=== PATIENT | female | born 1960 | race American Indian/Alaskan Native ===

== ENCOUNTER 2017-05-23 18:41 | Emergency (ER) | payer OTHER ==
[2017-05-23 19:26] VITALS: O2SAT 98
--- NOTE | 2017-05-23 19:28 | C.PDOC ---
History Of Present Illness 57 y/o female brought to ED by police for medical clearance for incarceration. Patient has history of Heroin abuse since 2012 and is currently under arrest. Referred by retirement medical personell for eval/concern for chronic wounds on legs. No other complaints at this time. Chief Complaint (Nursing): Medical Clearance History Per: Patient History/Exam Limitations: no limitations Onset/Duration Of Symptoms: Days Current Symptoms Are (Timing): Still Present Past Medical History Reviewed: Historical Data, Nursing Documentation, Vital Signs Vital Signs: Last Vital Signs Temp 97.3 F L 05/23/17 19:41 Pulse 84 05/23/17 19:41 Resp 22 05/23/17 19:41 BP 129/89 05/23/17 19:41 Pulse Ox 98 05/23/17 21:26 - Medical History PMH: Asthma, Atrial Fibrillation, CHF, HTN Family History: States: No Known Family Hx - Social History Hx Tobacco Use: Yes Hx Alcohol Use: Yes Hx Substance Use: Yes - Immunization History Hx Tetanus Toxoid Vaccination: No Hx Influenza Vaccination: No Hx Pneumococcal Vaccination: No Review Of Systems Except As Marked, All Systems Reviewed And Found Negative. Constitutional: Negative for: Fever, Chills Cardiovascular: Negative for: Chest Pain Respiratory: Negative for: Shortness of Breath Gastrointestinal: Negative for: Nausea, Vomiting, Diarrhea Musculoskeletal: Positive for: Leg Pain Skin: Negative for: Rash Physical Exam - Physical Exam Appears: Other (Older than age) Skin: Normal Color, Warm, Dry, No Rash Head: Atraumatic Eye(s): bilateral: Normal Inspection Oral Mucosa: Moist Teeth: Other (Poor dentician) Chest: Symmetrical Cardiovascular: Rhythm Regular Respiratory: Normal Breath Sounds, No Rales, No Rhonchi, No Wheezing Gastrointestinal/Abdominal: Soft, No Tenderness, No Guarding, No Rebound, Other (Obese abdomen) Extremity: Normal ROM, Pedal Edema (Moderate), No Deformity, Other (Healing wounds 2 on each leg, No infection noted) Neurological/Psych: Oriented x3, Normal Speech, Normal Motor, Normal Sensation ED Course And Treatment O2 Sat by Pulse Oximetry: 98 (RA) Pulse Ox Interpretation: Normal Medical Decision Making Medical Decision Making: under arrest, medically cleared for incarceration mild leg edema and closed and healing wounds are not infected and may be f/u by retirement medical personnel Disposition Doctor Will See Patient In The: Office Counseled Patient/Family Regarding: Studies Performed, Diagnosis - Disposition Referrals: [facility] at [facility] [Outside] [facility] [Outside] Disposition: RELEASED IN POLICE CUSTODY Disposition Time: 19:27 Condition: GOOD Additional Instructions: continue basic wound care for the legs THIS PT IS MEDICALLY CLEARED FOR INCARCERATION Instructions: Narcotic Abuse (ED), Chronic Wound Care (ED) Forms: [facility] (Slovenian) - Clinical Impression Clinical Impression: Heroin abuse, Chronic wound of extremity, Medical clearance for incarceration - Scribe Statement The provider has reviewed the documentation as recorded by the Scribsj Casillas All medical record entries made by the Chantalibsj were at my direction and personally dictated by me. I have reviewed the chart and agree that the record accurately reflects my personal performance of the history, physical exam, medical decision making, and the department course for this patient. I have also personally directed, reviewed, and agree with the discharge instructions and disposition.
[2017-05-23 19:44] VITALS: BP 129/89; PULSE 84; RESP 22; TEMP 97.3
== END 2017-05-23 19:41 ==
LOC: C.ER 18:41
DX: Z02.89 Encounter for other administrative examinations (principal); F11.10 Opioid abuse, uncomplicated; S80.922A Unspecified superficial injury of left lower leg, initial encounter; S80.921A Unspecified superficial injury of right lower leg, initial encounter; X58.XXXA Exposure to other specified factors, initial encounter